=== PATIENT | male | born 1960 | race Caucasian/White ===

== ENCOUNTER 2019-09-19 09:10 | Inpatient (IN) ==
--- NOTE | 2019-08-13 16:19 | PAT Medication Instructions ---
Medication Instructions Date of Service August 13, 2019 Home Medications allopurinol 100 mg tablet 100 mg PO QAM aspirin 81 mg tablet,delayed release 81 mg PO QAM cholecalciferol (vitamin D3) 1,000 unit chewable tablet 1,000 units PO WK doxazosin 4 mg tablet 4 mg PO QAM fenofibrate nanocrystallized 145 mg tablet 145 mg PO QPM ferrous fumarate 325 mg (106 mg iron) tablet 325 mg PO QAM gabapentin 300 mg capsule 300 mg PO QPM rosuvastatin 20 mg tablet 20 mg PO QPM ascorbic acid (vitamin C) 500 mg tablet 500 mg PO WK ergocalciferol (vitamin D2) 400 unit tablet 400 units PO QAM hydroxychloroquine 200 mg tablet 200 mg PO QAM lisinopril 20 mg tablet 20 mg PO QAM omega-3 fatty acids 1,000 mg capsule 1,000 mg PO BID pantoprazole 40 mg tablet,delayed release 40 mg PO QAM sertraline 50 mg tablet 100 mg PO QAM metformin 500 mg PO QAM rivaroxaban [Xarelto] 20 mg PO QAM ASK your prescriber and surgeon rivaroxaban [Xarelto] 20 mg PO QAM aspirin 81 mg tablet,delayed release 81 mg PO QAM hydroxychloroquine 200 mg tablet 200 mg PO QAM STOP taking 2 weeks before surgery (or as soon as possible if surgery is within 2 weeks) omega-3 fatty acids 1,000 mg capsule 1,000 mg PO BID STOP taking 48 hours before surgery fenofibrate nanocrystallized 145 mg tablet 145 mg PO QPM DO NOT take the morning of surgery cholecalciferol (vitamin D3) 1,000 unit chewable tablet 1,000 units PO WK ferrous fumarate 325 mg (106 mg iron) tablet 325 mg PO QAM ascorbic acid (vitamin C) 500 mg tablet 500 mg PO WK ergocalciferol (vitamin D2) 400 unit tablet 400 units PO QAM lisinopril 20 mg tablet 20 mg PO QAM metformin 500 mg PO QAM Take morning of surgery With a small sip of water, OTHERWISE NOTHING TO EAT OR DRINK AFTER MIDNIGHT: allopurinol 100 mg tablet 100 mg PO QAM doxazosin 4 mg tablet 4 mg PO QAM pantoprazole 40 mg tablet,delayed release 40 mg PO QAM sertraline 50 mg tablet 100 mg PO QAM Take evening before surgery gabapentin 300 mg capsule 300 mg PO QPM rosuvastatin 20 mg tablet 20 mg PO QPM Other Notes If you have any questions please call us at [phone] or [phone] or [phone] or [phone]
--- NOTE | 2019-08-16 09:22 | Anesthesiology Consultation ---
Date of Service August 16, 2019 Assessment & Plan (1) Encounter for pre-operative examination: - Awaiting most recent PCP office visit note (Dr. Hernandez). - Elevated creatinine: Known hx CKD but elevated from baseline on 07/2019 labs at 1.96, PCP d/c Metformin 08/12/19, changed antiglycemic medications and is monitoring kidney function-- rechecked level at PAT visit 08/16/18 stable/mildly improved with creatinine at 1.92/GFR 36. Will recheck BMP AM DOS. - Check BSG AM DOS Chart Review Chart Review: Patient seen in Pre Admission Testing Teaching & Discussion Pre-Anesthesia Teaching/Discussion Notes: Instructed NPO after midnight before surgery,except medications with 15 cc of water. Medication instructions provided according to the [facility] guidelines. History Surgery Operation Date: 09/19/19 07:30 Proposed Procedures p Navigational Bronchoscopy with Marking of Right Lower Lobe with Indocyanine Green Dye, - Eliot Santos MD, FACS s Right Robotic Video Assisted Thoracoscopy with Right Lower Wedge Resection - Eliot Santos MD, FACS Height/Weight Height: 5 ft 8 in Weight: 107.4 kg Allergies Allergy/AdvReac Type Severity Reaction Status Date / Time No Known Allergies Allergy Verified 08/13/19 15:28 Medications Home Medications Medication Instructions Recorded Confirmed Last Taken allopurinol 100 mg tablet 100 mg PO QAM 07/25/19 08/13/19 Unknown aspirin 81 mg tablet,delayed 81 mg PO QAM 07/25/19 08/13/19 Unknown release cholecalciferol (vitamin D3) 1,000 1,000 units PO WK 07/25/19 08/13/19 Unknown unit chewable tablet doxazosin 4 mg tablet 4 mg PO QAM 07/25/19 08/13/19 Unknown fenofibrate nanocrystallized 145 145 mg PO QPM 07/25/19 08/13/19 Unknown mg tablet ferrous fumarate 325 mg (106 mg 325 mg PO QAM 07/25/19 08/13/19 Unknown iron) tablet gabapentin 300 mg capsule 300 mg PO QPM 07/25/19 08/13/19 Unknown rosuvastatin 20 mg tablet 20 mg PO QPM 07/25/19 08/13/19 Unknown ascorbic acid (vitamin C) 500 mg 500 mg PO WK 07/26/19 08/13/19 Unknown tablet ergocalciferol (vitamin D2) 400 400 units PO QAM 07/26/19 08/13/19 Unknown unit tablet hydroxychloroquine 200 mg tablet 200 mg PO QAM 07/26/19 08/13/19 Unknown lisinopril 20 mg tablet 20 mg PO QAM 07/26/19 08/13/19 Unknown omega-3 fatty acids 1,000 mg 1,000 mg PO BID 07/26/19 08/13/19 Unknown capsule pantoprazole 40 mg tablet,delayed 40 mg PO QAM 07/26/19 08/13/19 Unknown release sertraline 50 mg tablet 100 mg PO QAM tab 07/26/19 08/13/19 Unknown linagliptin [Tradjenta] 5 mg PO DAILY 08/16/19 08/16/19 Unknown Past Medical History Medical History Arthritis unsure what type/"hand related"- on hydroxychloroquine Carcinoid tumor of lung CKD (chronic kidney disease) CKD but elevated from baseline on 07/2019 labs at 1.96, PCP d/c Metformin 08/12/19 and monitoring-- rechecked level at PAT visit 08/16/18 stable/mildly improved at 1.92 Depression Diabetes mellitus, type 2 NIDDM GERD (gastroesophageal reflux disease) controlled Gout Hearing deficit Hx of deep venous thrombosis RLE (2016)- previously on Xarelto (since discontinued) Hx of myocardial infarction 1993- medically managed Hyperlipidemia Hypertension Obesity Sleep apnea CPAP Stroke CVA (1997); "mini-stroke" ?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, difficulty with ambulation (uses walker) Exercise / Class Metabolic Activity III < 4 Walking/Shop/Light housework (uses walker PRN) Past Family History Family History Sister Hypertension Brother Hypertension Diabetes Mother Heart disease Cancer Father Heart disease Stroke Past Surgical History Surgical History History of lung biopsy Hx of colonoscopy Past Anesthesia History No Hx of Anesthesia Complications and No Family Hx of Anesthesia Complications History of PONV No Hx of PONV and No Hx of Motion Sickness Social History Smoking Status: Former smoker Smoking cigarettes per day: Quit 1997 Do You Dip or Chew Tobacco: No Hx Alcohol Use: No Hx Substance Use: No Review of Systems Reflux controlled. Patient denies chest pain, shortness of breath, cough, wheezing, palpitations. Physical Exam Vital Signs VITALS BP 155/82 P 54 TEMP 97.7 SP02 93%RA RESP 18 PHYSICAL Full neck and c-spine range of motion. Full TMJ range of motion. TMD 3.5 finger breaths Mallampati Score 3 Dentition: edentulous Lungs: diminished breath sounds throughout Cardiac: regular rate and rhythm, distant heart sounds Spine: normal Carotid arteries: negative bruit Extremities: no edema Testing Laboratory Results 08/16/19 09:47 Hemoglobin A1c 5.2 % (4.5-5.6) 08/16/19 09:47 Blood Type A Positive 08/16/19 09:47 Antibody Screen NEGATIVE 08/16/19 09:47 08/10/19 WBC 4.2 H/H 12.1/37.0 PLATELETS 157 HGBA1C 5.4% Electrocardiogram Date: 08/16/19 SB with first degree AVB at 51bpm. Otherwise "normal" ECG. Chest X-Ray Date: 07/04/19 post-procedural changes s/p right lung biopsy. No evidence of pneumothorax. Cardiomediastinal silhouette is borderline enlarged. B/L low lung volumes. No evidence of pleural effusions.
[2019-08-16 11:02] LABS: Estimated Average Glucose 103 mg/dl; Hemoglobin A1C 5.2 % (4.5-5.6)
[2019-08-16 11:04] LABS: BUN Creatinine Ratio 15.9 (10-20); Calcium 9.9 mg/dl (8.5-10.1); Est GFR (African American) 42.6; Est GFR (Non-African American) 36.8; Potassium 4.8 mmol/L (3.5-5.1)
--- NOTE | 2019-08-17 08:15 | Electrocardiogram Report ---
Test Reason : Blood Pressure : / mmHG Vent. Rate : 051 BPM Atrial Rate : 051 BPM P-R Int : 242 ms QRS Dur : 116 ms QT Int : 468 ms P-R-T Axes : 054 -14 055 degrees QTc Int : 431 ms Sinus bradycardia with 1st degree A-V block Otherwise normal ECG No previous ECGs available Confirmed by Martin Landa ([id number]) on 08/16/2019 5:43:40 PM Referred By: Eliot Santos Confirmed By:Alvin Landa
[2019-09-19 10:05] LABS: BUN Creatinine Ratio 18.1 (10-20); Calcium 10.2 mg/dl (8.5-10.1); Creatinine Clr Calc Pharmacy 46.7 ml/min; Est GFR (Non-African American) 37.9; Potassium 4.7 mmol/L (3.5-5.1)
[2019-09-19] MEDS ORDERED: LIDOCAINE HCL 2% 2 ML VIAL/AMP(20MG/ML) INFIL ONE (10:47)
[2019-09-19] MEDS ORDERED: ONDANSETRON INJ 2 MG/ML 2 ML VIAL ONE (10:47)
[2019-09-19] MEDS ORDERED: NEOSTIGMINE METHYLSULFATE 5 MG/5 ML SYR ONE (10:47)
[2019-09-19] MEDS ORDERED: ROCURONIUM BROMIDE 10 MG/ML 5 ML VIAL ONE ×2 (10:47→13:28)
[2019-09-19] MEDS ORDERED: PROPOFOL IV EMULSION 10 MG/ML 20 ML VIAL IV ONE (10:47)
[2019-09-19] MEDS ORDERED: DEXAMETHASONE SOD INJ 4 MG/ML VIAL ONE (10:47)
[2019-09-19] MEDS ORDERED: GLYCOPYRROLATE 0.2 MG/ML VIAL ONE (10:47)
[2019-09-19] MEDS ORDERED: fentaNYL citrate 100 MCG/2 ML VIAL ONE ×2 (10:48→14:19)
[2019-09-19] MEDS ORDERED: MIDAZOLAM HCL 1 MG/ML 2ML VIAL ONE (10:48)
[2019-09-19] MEDS ORDERED: LACTATED RINGER'S 1,000 ML IV SCH (11:00)
[2019-09-19] MEDS ORDERED: BUPIVACAINE 0.5 % 5 MG/1 ML MPF 30ML VIAL ONE (11:38)
[2019-09-19] MEDS ORDERED: BUPIVACAINE LIPOSOME 1.3% 266 MG/20 ML VIAL ONE (11:39)
[2019-09-19] MEDS ORDERED: SODIUM CHLORIDE 0.9% PF 50 ML VIAL ONE (11:39)
--- NOTE | 2019-09-19 11:56 | History & Physical Report ---
Date of Service September 19, 2019 Assessment & Plan (1) Nodule of right lung: Very long talk with the patient and his sister. I also discussed this case with Dr. Philip Grewal. We are going to proceed with a navigational bronchoscopy with ICG marking and then turned the patient into a robot-assisted thoracoscopic wedge resection with frozen section and possible lobectomy. Present on Admission?: Yes (2) Carcinoid tumor of lung: Present on Admission?: Yes History of Present Illness Primary Care Provider: Rowan Morse MD This is a 59-year-old male with a history of cigarette smoking but quit many years ago who was referred to me by Dr. Philip Grewal from [place] [facility] specialist. Patient has multiple issues and is managed by home care nurses and caseworkers at home. He has a right lower lobe mass and appears to be a carcinoid. Despite his young age the patient is obese suffers from GERD, non -insulin-dependent diabetes mellitus, hyperlipidemia, and gout. Had a long talk to the patient his sister. We are going to proceed with a electromagnetic navigational bronchoscopy with ICG marking and a wedge resection with a robotic thoracoscopic approach. Should frozen section show a non-small cell we will proceed with a right lower lobectomy, lung function show she would easily tolerate this. Allergies Allergy/AdvReac Type Severity Reaction Status Date / Time No Known Allergies Allergy Verified 09/19/19 09:36 Home Medications Home Medications Medication Instructions Recorded Confirmed Type allopurinol 100 mg tablet 100 mg PO QAM 07/25/19 09/19/19 History aspirin 81 mg tablet,delayed 81 mg PO QAM 07/25/19 09/19/19 History release cholecalciferol (vitamin D3) 25 1,000 units PO WK 07/25/19 09/19/19 History mcg (1,000 unit) chewable tablet doxazosin 4 mg tablet 4 mg PO QAM 07/25/19 09/19/19 History fenofibrate nanocrystallized 145 145 mg PO QPM 07/25/19 09/19/19 History mg tablet ferrous fumarate 325 mg (106 mg 325 mg PO QAM 07/25/19 09/19/19 History iron) tablet gabapentin 300 mg capsule 300 mg PO QPM 07/25/19 09/19/19 History ascorbic acid (vitamin C) 500 mg 500 mg PO WK 07/26/19 09/19/19 History tablet ergocalciferol (vitamin D2) 400 400 units PO QAM 07/26/19 09/19/19 History unit tablet hydroxychloroquine 200 mg tablet 200 mg PO QAM 07/26/19 09/19/19 History lisinopril 20 mg tablet 20 mg PO QAM 07/26/19 09/19/19 History omega-3 fatty acids 1,000 mg 1,000 mg PO BID 07/26/19 09/19/19 History capsule pantoprazole 40 mg tablet,delayed 40 mg PO QAM 07/26/19 09/19/19 History release sertraline 50 mg tablet 100 mg PO QAM tab 07/26/19 09/19/19 History linagliptin [Tradjenta] 5 mg PO DAILY 08/16/19 09/19/19 History Past Med/Surg History Medical History Arthritis unsure what type/"hand related"- on hydroxychloroquine Carcinoid tumor of lung CKD (chronic kidney disease) CKD but elevated from baseline on 07/2019 labs at 1.96, PCP d/c Metformin 08/12/19 and monitoring-- rechecked level at PAT visit 08/16/18 stable/mildly improved at 1.92 Depression Diabetes mellitus, type 2 NIDDM GERD (gastroesophageal reflux disease) controlled Gout Hearing deficit Hx of deep venous thrombosis RLE (2016)- previously on Xarelto (since discontinued) Hx of myocardial infarction 1993- medically managed Hyperlipidemia Hypertension Obesity Sleep apnea CPAP Stroke CVA (1997); "mini-stroke" ?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, difficulty with ambulation (uses walker) Surgical History History of lung biopsy Hx of colonoscopy Family History Sister Hypertension Brother Hypertension Diabetes Mother Heart disease Cancer Father Heart disease Stroke Social History (Updated 07/26/19 @ 11:51 by Sushma Eduardo RN) Preferred Language: [place]amb[place] Communication Ability: Effective Beliefs That Will Affect Care: None marital status: Single Current Living Situation: Alone Feels Safe at Home: Yes Smoking Status: Former smoker packs per day: 2.5 ; Cigarettes Per Day: Quit 1997 ; Do You Dip or Chew Tobacco: No ; Second Hand Exposure: No ; Hx Alcohol Use: No Hx Substance Use: No Review of Systems Review of Systems: The patient does not walk much. Gets around in a wheelchair. He quit smoking years ago denies shortness of breath hemoptysis or productive cough. He has diffuse arthritis. He is obese. He is been eating well. Is had no GI or complaints. The rest of his review of systems is unremarkable. Physical Exam Physical Exam: This is an obese male who appears her stated age of 59. He is awake alert and oriented. His extraocular's are intact. Sclera anicteric. He is edentulous. He has a thick neck. He actually is moving air fairly well wi thout wheezing or rhonchi. He is regulated with his heart distant heart sounds. His abdomen is quite obese. He has trace edema of his lower extremities no joint effusions. He has good peripheral pulses. Neurologically is completely intact. Results & Data Vital Signs (Past 12 Hours) Vital Signs Temp Pulse Resp BP Pulse Ox 09/19/19 09:43 36.3 C L 68 20 145/81 H 95 PG Care Time/CCT Total # of Minutes Spent Total Time Spent with Patient: Total time spent is greater than 50% in coordination of care (as documented) at patient's floor/unit and/or counseling patient: Coding Level of Care Code None Diagnoses Nodule of right lung R91.1 Carcinoid tumor of lung D3A.090
[2019-09-19] MEDS ORDERED: OCTREOTIDE ACETATE 100 MCG in SYRINGE 9 ML IV ONE (12:00)
--- NOTE | 2019-09-19 13:07 | Fluoroscopy Report ---
FL chest 1V frontal CLINICAL HISTORY: NAVIGATIONAL BRONCH IN OR COMPARISON STUDY: Chest CT 08/16/2019. FLUOROSCOPY TIME: 21 seconds.. FINDINGS: A single fluoroscopic spot image of the right lower chest demonstrate a bronchoscope with n eedle biopsy of the right lower lobe nodule. IMPRESSION: Fluoroscopy provided for right lower lobe bronchoscopy. ACT 112: Negative or not required by law. Electronically signed by: Rod Garcia M.D. 09/19/2019 1:06 PM
[2019-09-19] MEDS ORDERED: HYDROmorphone INJ 2 MG/ML SYR/VIAL IV PRN (13:28)
[2019-09-19] MEDS ORDERED: ONDANSETRON INJ 2 MG/ML 2 ML VIAL IV PRN ×2 (13:28→15:57)
[2019-09-19] MEDS ORDERED: ATROPINE SULFATE 0.1 MG/ML 10ML SYR IV PRN (13:28)
[2019-09-19] MEDS ORDERED: fentaNYL citrate 100 MCG/2 ML VIAL IV PRN (13:28)
[2019-09-19] MEDS ORDERED: PROMETHAZINE HCL 6.25 MG in SODIUM CHLORIDE 0.9% 50 ML IV PRN (13:28)
[2019-09-19] MEDS ORDERED: ePHEDrine sulfate 50 MG/ML AMP IV PRN (13:28)
[2019-09-19] MEDS ORDERED: SURGICEL ABSORB HEMOSTAT 2IN X 14IN TOP ONE (13:47)
[2019-09-19] MEDS ORDERED: INDOCYANINE GREEN 25 MG/10 ML INJ ONE (13:47)
[2019-09-19] MEDS ORDERED: CEFAZOLIN 3000MG 72.5 ML IV ONE (14:30)
[2019-09-19] MEDS ORDERED: METOCLOPRAMIDE HCL INJ 5 MG/ML 2 ML VIAL IV ONE (14:45)
--- NOTE | 2019-09-19 15:12 | XRay Report ---
XR chest 1V portable HISTORY: 59 years-old Male right lung resection status post pulmonary resection COMPARISON: Chest CT 08/16/2019 TECHNIQUE: Portable AP view of the chest FINDINGS: Azygos lobe and fissure. Cardiomegaly. Subacute emphysema of the lower lateral right chest wall. Righ t-sided chest tube distal tip terminates adjacent to the medial right lung apex. Tiny right apical pn eumothorax is present with a few millimeters of pleural separation. Mild right lung base atelectasis. Calcific plaque of the thoracic aortic arch. Degenerative changes of the shoulders and spine. IMPRESSION: 1. Right-sided chest tube distal tip terminates adjacent to the medial right lung apex. 2. Tiny right apical pneumothorax. ACT 112: Negative or not required by law. The above report was generated using voice recognition software. It may contain grammatical, syntax o r spelling errors. Electronically signed by: Lele Canela M.D. 09/19/2019 3:11 PM
--- NOTE | 2019-09-19 15:12 | Anesthesiology Progress Note ---
Date of Service September 19, 2019 Anesthesia Post Procedure Vital Signs Vital Signs: Temp Pulse Pulse Resp BP Pulse Ox 09/19/19 14:44 36.4 C L 68 16 110/64 99 09/19/19 09:43 36.3 C L 68 20 145/81 H 95 Transfer of Care Handoff Completed per policy Notes Mental Status: alert / awake / arousable Patient Amnestic to Procedure: Yes Nausea / Vomiting: adequately controlled Pain: adequately controlled Airway Patency, RR, SpO2: stable & adequate BP & HR: stable & adequate Hydration State: stable & adequate Anesthetic Complications: no major complications apparent
--- NOTE | 2019-09-19 15:18 | Operative Report ---
DATE OF OPERATION: 09/19/2019 PREOPERATIVE DIAGNOSIS: Nodular densities, right lower lobe. POSTOPERATIVE DIAGNOSIS: Probable carcinoid x2, right lower lobe. PROCEDURES PERFORMED: 1. Electromagnetic navigational bronchoscopy with marking of this area with ICG dye. 2. Robot-assisted thoracoscopic wedge resection with right lower lobe masses and lymph node biopsy. SURGEON: Eliot Santos MD. SWAGE TOOLSETTER: PRESTON Varma (Mr. Alford was present for the entire case and was instrumental at the patient's bedside while I was at the console). ANESTHESIA: General anesthesia, endotracheal intubation. INDICATION FOR PROCEDURE AND FINDINGS: Rasheed Pryor is a 59-year-old male, it was felt that he may well have a carcinoid in his right lower lobe; however, his barrel handler was concerned as he did have a history of cigarette smoking that we get a tissue diagnosis and treat this a bit more aggressively. I met with the patient and his sister in our office and we decided to do so. On 09/19/2019, the patient was brought to the operating room and underwent an uncomplicated navigational bronchoscopy and we were able to iram this area near the mass with ICG dye. We then wedged this out with a thoracoscopy. Frozen sections are consistent with a carcinoid, but we will have to wait until the immunohistochemical stains are back to say for sure. We had clean margins. The patient tolerated it well with negligible blood loss. DESCRIPTION OF PROCEDURE: The patient was brought to the operating room and laid in supine position. General anesthesia was induced. Endotracheal intubation was performed with a single lumen tube. After appropriate timeout had been called and antibiotics given, a flexible bronchoscope was placed through the adapter and the airways were inspected. There were no endobronchial lesions and he had really very little in the way of any mucus and there was no bleeding. I then placed a navigational probe through the working channel and we mapped our airways after registering the airways and went down into the right lower lobe, and we were able to come out very close to this mass. I confirmed this with a radial ultrasound. I then went out with a needle and 1 mL of ICG dye and injected it under fluoroscopic guidance. We then removed the catheter. There was no bleeding and no dye could be seen endobronchially. The patient was then switched over to a double lumen tube and turned onto the left lateral decubitus position, his right chest was prepped and draped in usual sterile fashion. We used 3 separate arms for this. A 5 mm port was placed just about the mid axillary line and we were about 2 cm from the scapular tip. Unfortunately, we were below the diaphragm. This appeared to be normal. We then removed this port. I put another 5 mm port next to the scapula posteriorly. Upon insufflating CO2, we could see that the port that we had placed could be used at this point. We then put the port back in. We switched this over to a 12 mm camera port. We then put an 8 mm port anteriorly and had an 8 mm port, which we had placed posteriorly. We then put a 12 mm res habilitation assistant's port anteriorly just above the diaphragm. We then docked the robot. Immediately upon opening the chest, we went posteriorly and we could see this mass. I had to take down the inferior pulmonary ligament. We did this without difficulty and I biopsied a small level 8 and level 9 lymph nodes, which appeared normal. I identified the inferior pulmonary vein. I then did a generous wedge resection to remove this mass, which we could easily see using the Firefly fluorescence. We wedged this out by firing Endo-YFN several times with a small Endobag and when delivering it off the field, I could feel the mass. I went and reviewed the frozen section with Dr. Elliott Sabillon and indeed this is consistent with a neuroendocrine tumor, although we cannot say for sure. There were 2 nodules, which was not surprising. One was only 8 millimeter or so and they were close. Margins were clean. We really got into no bleeding. Of interest is the patient did have an azygos lobe. This is not of clinical significance. We then placed a 24-Kittitian chest tube into the assistance port directed towards the apex. We closed the 12 mm camera port using a 0 Vicryl. A 4-0 Monocryl was used in running subcuticular fashion to approximate the wound edges and heavy silk suture anchored the chest tube to the patient's skin. 0 Vicryl closed the muscle layer of the 12 mm port. A 4-0 Monocryl was used in running subcuticular fashion to approximate the wound edges. The patient tolerated it well with negligible blood loss. At the beginning of the case, we mixed a total of 266 mg of Exparel in 20 mL of solution with 30 mL of 0.5% bupivacaine and 250 mL of normal saline. We then injected each of the 4 port sites and performed an intercostal block from the 2nd to the 12th rib under thoracoscopic guidance. The patient was awakened without difficulty and extubated in the room and transported back to the postanesthesia care unit in stable condition. I attest to the content of the Intraoperative Record and any orders documented therein. Any exception s are noted below.
[2019-09-19] MEDS ORDERED: MoRPHine SULFATE 2 MG/ML CARP IV PRN (15:57)
[2019-09-19] MEDS ORDERED: GLUCAGON FOR INJ 1 MG VIAL IM PRN (16:15)
[2019-09-19] MEDS ORDERED: CARBOHYDRATES FOR HYPOGLYCEMIA PO PRN (16:15)
[2019-09-19] MEDS ORDERED: DEXTROSE 50% 50 ML SYRINGE IV PRN (16:15)
[2019-09-19] MEDS ORDERED: GLUCOSE 10 TABS/TUBE PO PRN (16:15)
[2019-09-19] MEDS ORDERED: GLUCOSE 40% GEL 15 GM TUBE PO PRN (16:15)
[2019-09-19] MEDS: SODIUM CHLORIDE 0.9% 1000ML 1,000 ML IV SCH (16:34)
[2019-09-19] MEDS: ACETAMINOPHEN 1,000 MG/100 ML VIAL IV SCH ×2 (17:32→23:51)
[2019-09-19] MEDS: INSULIN ASPART 100 UNITS/ML 3 ML PEN SC SCH ×2 (18:59→20:49)
[2019-09-19] MEDS: FENOFIBRATE NANOCRYSTALLIZED 145 MG TABLET PO SCH (20:45)
[2019-09-19] MEDS: DOCUSATE SODIUM 100 MG CAP PO SCH (20:46)
[2019-09-19] MEDS: GABAPENTIN 300 MG CAP PO SCH (20:46)
[2019-09-19] MEDS: METOCLOPRAMIDE HCL INJ 5 MG/ML 2 ML VIAL IV SCH (23:26)
[2019-09-20] MEDS: SODIUM CHLORIDE 0.9% 1000ML 1,000 ML IV SCH (05:46)
[2019-09-20] MEDS: METOCLOPRAMIDE HCL INJ 5 MG/ML 2 ML VIAL IV SCH (05:46)
--- NOTE | 2019-09-20 07:46 | XRay Report ---
XR chest 1V portable HISTORY: Postop. right lung wedge COMPARISON: Chest 09/19/2019. FINDINGS: Right-sided chest tube is been repositioned and now resides within the medial aspect of the mid right hemithorax. Tiny right apical pneumothorax is unchanged. There are low lung volumes. The h eart remains mildly enlarged. Incidental note is made of a right azygos lobe. IMPRESSION: Stable tiny right pneumothorax. Right chest tube remains in place. ACT 112: Negative or not required by law. Electronically signed by: Rod Garcia M.D. 09/20/2019 7:44 AM
--- NOTE | 2019-09-20 08:36 | Anesthesiology Progress Note ---
Date of Service September 20, 2019 Anesthesia Post Procedure Vital Signs Vital Signs: Temp Pulse Pulse Resp BP BP Pulse Ox 09/20/19 08:00 36.5 C 56 L 17 123/73 95 09/20/19 04:00 36.4 C L 57 L 18 125/74 96 09/20/19 02:00 36.4 C L 51 L 18 131/73 96 09/20/19 00:02 36.4 C L 54 L 18 123/73 95 09/19/19 22:00 36.6 C 54 L 16 119/64 92 09/19/19 20:00 36.5 C 56 L 16 125/76 96 09/19/19 19:25 36.5 C 60 16 123/73 96 09/19/19 18:00 36.4 C L 59 L 20 138/79 99 09/19/19 17:00 36.5 C 52 L 20 138/79 98 09/19/19 16:37 36.4 C L 58 L 20 135/73 99 09/19/19 16:01 36.4 C L 58 L 20 121/68 99 09/19/19 15:30 36.6 C 55 L 25 H 115/65 97 09/19/19 15:20 36.6 C 62 22 121/75 100 09/19/19 15:10 50 L 26 H 115/63 100 09/19/19 15:00 66 18 115/72 100 09/19/19 14:50 66 18 114/75 100 09/19/19 14:44 36.4 C L 68 16 110/64 99 09/19/19 09:43 36.3 C L 68 20 145/81 H 95 Notes Mental Status: alert / awake / arousable and participated in evaluation Patient Amnestic to Procedure: Yes Nausea / Vomiting: adequately controlled Pain: adequately controlled Airway Patency, RR, SpO2: stable & adequate BP & HR: stable & adequate Hydration State: stable & adequate Anesthetic Complications: no major complications apparent and Pt Satisfied with anesthetic care
--- NOTE | 2019-09-20 09:19 | Progress Note ---
DATE: 09/20/2019 Mr. Pryor was seen today on 09/20/2019. He looks great. He denies pain. He has drained some fluid from his chest tube, but he really looks quite good. BUN and creatinine are up a bit at 34 and 1.7 yesterday. He is making good urine now. He is up and ambulating in the hallway with his walker. He is on room air at 95% saturation. We are going to pull his chest tube out tomorrow and let him go home. It appears from the frozen section. We are probably dealing with a carcinoid, but we will no more and we get our immunohistochemical stains back. He has certainly tolerated this procedure well.
[2019-09-20] MEDS: INSULIN ASPART 100 UNITS/ML 3 ML PEN SC SCH ×4 (09:44→21:53)
[2019-09-20] MEDS: ASPIRIN 81 MG ECTAB PO SCH (09:46)
[2019-09-20] MEDS: DOCUSATE SODIUM 100 MG CAP PO SCH ×2 (09:46→21:06)
[2019-09-20] MEDS: lisinopriL 20 MG TAB PO SCH (09:46)
[2019-09-20] MEDS: PANTOprazole 40 MG TAB PO SCH (09:46)
[2019-09-20] MEDS: DOXAZosin MESYLATE 4 MG TAB PO SCH (09:46)
[2019-09-20] MEDS: SERTRALINE HCL 100 MG TABLET PO SCH (09:46)
[2019-09-20] MEDS: allopurinoL 100 MG TAB PO SCH (09:47)
[2019-09-20] MEDS: ENOXAPARIN INJ 40 MG/0.4 ML SYR SQ SCH (09:47)
[2019-09-20] MEDS: HYDROXYCHLOROQUINE SULFATE 200 MG TAB PO SCH (09:47)
[2019-09-20] MEDS: CHOLECALCIFEROL (VITAMIN D) 400 UNITS TABLET PO SCH (09:48)
[2019-09-20] MEDS: ACETAMINOPHEN 1,000 MG/100 ML VIAL IV SCH (09:50)
[2019-09-20] MEDS: ACETAMINOPHEN 325 MG TAB PO SCH ×3 (09:52→21:06)
--- NOTE | 2019-09-20 12:47 | Pulmonary Function Test ---
Spirometry was performed with static and dynamic pulmonary function with adequate quality. There is no evidence of obstructive lung dysfunction. No bronchodilator test done. Flow volume loop cannot comment on as I am not able to see a clear picture on the scanned document. Suggest clinical correlation.
[2019-09-20] MEDS: FENOFIBRATE NANOCRYSTALLIZED 145 MG TABLET PO SCH (21:06)
[2019-09-20] MEDS: GABAPENTIN 300 MG CAP PO SCH (21:06)
[2019-09-21] MEDS: OXYCODONE HCL IR 5 MG TAB (IMMEDIATE RELEASE) PO PRN (01:41)
[2019-09-21] MEDS ORDERED: TAMSULOSIN HCL 0.4 MG CAP PO ONE (03:39)
[2019-09-21] MEDS: ACETAMINOPHEN 325 MG TAB PO SCH ×4 (03:43→21:18)
--- NOTE | 2019-09-21 07:29 | XRay Report ---
XR chest 1V portable HISTORY: Postop. right lung resection COMPARISON: Chest 09/20/2019. FINDINGS: The right-sided chest tube terminates in the right lung apex. A tiny right apical pneumotho rax is also stable. The left lung is clear. There is mild central pulmonary vascular congestion witho ut overt edema. The heart remains mildly enlarged. Incidental note is made of a right azygos lobe. Ri ght chest wall subcutaneous emphysema has slightly progressed. IMPRESSION: 1. No change in the tiny right apical pneumothorax and right-sided chest tube. 2. Right chest wall subcutaneous emphysema has slightly progressed. ACT 112: Negative or not required by law. Electronically signed by: Rod Garcia M.D. 09/21/2019 7:27 AM
[2019-09-21] MEDS: INSULIN ASPART 100 UNITS/ML 3 ML PEN SC SCH ×4 (09:21→21:25)
[2019-09-21] MEDS: DOCUSATE SODIUM 100 MG CAP PO SCH ×2 (09:23→21:18)
[2019-09-21] MEDS: lisinopriL 20 MG TAB PO SCH (09:23)
[2019-09-21] MEDS: SERTRALINE HCL 100 MG TABLET PO SCH (09:23)
[2019-09-21] MEDS: CHOLECALCIFEROL (VITAMIN D) 400 UNITS TABLET PO SCH (09:24)
[2019-09-21] MEDS: HYDROXYCHLOROQUINE SULFATE 200 MG TAB PO SCH (09:24)
[2019-09-21] MEDS: ASPIRIN 81 MG ECTAB PO SCH (09:24)
[2019-09-21] MEDS: DOXAZosin MESYLATE 4 MG TAB PO SCH (09:24)
[2019-09-21] MEDS: allopurinoL 100 MG TAB PO SCH (09:24)
[2019-09-21] MEDS: ENOXAPARIN INJ 40 MG/0.4 ML SYR SQ SCH (09:25)
[2019-09-21] MEDS: PANTOprazole 40 MG TAB PO SCH (09:27)
--- NOTE | 2019-09-21 09:48 | XRay Report ---
XR chest 1V portable CLINICAL HISTORY: pneumothorax COMPARISON STUDY: Chest radiograph September 21, 2019 at 7:05 AM. FINDINGS: Right apical chest tube is in place. No pneumothorax is identified. Azygos fissure is noted . No evidence for pulmonary edema. There are mild bibasilar opacities. Subcutaneous gas within the ri ght chest wall and neck is noted. IMPRESSION: 1. Right chest tube in place. No pneumothorax identified. 2. Mild bibasilar opacities. ACT 112: Negative or not required by law. Electronically signed by: Dean Soliz M.D. 09/21/2019 9:46 AM
--- NOTE | 2019-09-21 10:26 | Surgery Progress Note ---
Date of Service September 21, 2019 Assessment & Plan (1) Carcinoid tumor of lung: -carcinoid was identified by CT guided biopsy -pt. underwent RVATS with Wedge resection on 09/19/19: -pathology pending due to urinary retention will place on scheduled flomax and ask urology to see: -PVR this am by bladder scan was noted to be 450 cc -chest tube to remain in place today: -it became disconnected from Pleur-evac resulting in air leak -when placed back to suction CXR showed no pneumothorax -continue ambulation -continue pain control measures -lovenox in place for DVT prevention Subjective Pt. notes his breathing is comfortable. He is ambulating with walker. He is tolerating diet. Discussed with RN--pt. having difficulty voiding. He was shad straight cath performed for 850 cc. He did receive flomax. Physical Exam Constitutional: well developed and well nourished; no acute distress Respiratory: normal respiratory effort; no respiratory distress and no labored breathing BS are decreased at bases Cardiovascular: Rate/Rhythm: regular rate and regular rhythm Neurologic: moves all extremities Results & Data Vital Signs (Past 12 Hours) Vital Signs Temp Pulse Pulse Resp BP BP Pulse Ox 09/21/19 07:32 36.9 C 74 14 140/70 95 09/21/19 05:44 87 95 09/20/19 23:01 37.1 C 67 16 117/65 93 PG Care Time/CCT Total # of Minutes Spent Total Time Spent with Patient: Total time spent is greater than 50% in coordination of care (as documented) at patient's floor/unit and/or counseling patient: Coding Level of Care Code None Diagnoses Carcinoid tumor of lung D3A.090
[2019-09-21] MEDS ORDERED: TAMSULOSIN HCL 0.4 MG CAP PO SCH (21:00)
[2019-09-21] MEDS: GABAPENTIN 300 MG CAP PO SCH (21:19)
[2019-09-21] MEDS: FENOFIBRATE NANOCRYSTALLIZED 145 MG TABLET PO SCH (21:20)
[2019-09-22] MEDS: ACETAMINOPHEN 325 MG TAB PO SCH ×4 (03:08→21:19)
[2019-09-22] MEDS: OXYCODONE HCL IR 5 MG TAB (IMMEDIATE RELEASE) PO PRN (06:11)
[2019-09-22 06:46] LABS: Creatinine Clr Calc Pharmacy 52.6 ml/min; Est GFR (African American) 50.8; Est GFR (Non-African American) 43.8
--- NOTE | 2019-09-22 07:31 | XRay Report ---
XR chest 1V portable CLINICAL HISTORY: 59 years-old Male presenting with pneumothorax. TECHNIQUE: Portable upright AP view of the chest was obtained. COMPARISON: 10/01/2019. FINDINGS: Large bore right pleural drain position at the right apex unchanged from prior. Associated extensive soft tissue emphysema along the right lateral chest wall. Atherosclerosis of the aortic arch. Cardiac silhouette borderline enlarged. Mild pulmonary vascular prominence likely relates to mildly low lung volumes. Minimal right basilar opacity, stable to slightly increased from prior. Trace right pleural effusion may be present. Allowing for image quality, no pneumothorax is identified. Incidental note made of an azygos lobe fissure. Osseous structures normal. Upper abdomen normal. IMPRESSION: 1. No pneumothorax identified. 2. Right pleural drain in place. 3. Mildly low lung volumes with hypoventilatory changes and minimal right basilar atelectasis and/or effusion. ACT 112: Negative or not required by law. Electronically signed by: Elliott Hamm M.D. 09/22/2019 7:29 AM
[2019-09-22] MEDS ORDERED: TAMSULOSIN HCL 0.4 MG CAP PO ONE (09:20)
[2019-09-22] MEDS: DOXAZosin MESYLATE 4 MG TAB PO SCH (09:41)
[2019-09-22] MEDS: allopurinoL 100 MG TAB PO SCH (09:41)
[2019-09-22] MEDS: CHOLECALCIFEROL (VITAMIN D) 400 UNITS TABLET PO SCH (09:41)
[2019-09-22] MEDS: SERTRALINE HCL 100 MG TABLET PO SCH (09:41)
[2019-09-22] MEDS: ASPIRIN 81 MG ECTAB PO SCH (09:41)
[2019-09-22] MEDS: DOCUSATE SODIUM 100 MG CAP PO SCH ×2 (09:41→21:19)
[2019-09-22] MEDS: PANTOprazole 40 MG TAB PO SCH (09:42)
[2019-09-22] MEDS: HYDROXYCHLOROQUINE SULFATE 200 MG TAB PO SCH (09:42)
[2019-09-22] MEDS: ENOXAPARIN INJ 40 MG/0.4 ML SYR SQ SCH (09:42)
[2019-09-22] MEDS: lisinopriL 20 MG TAB PO SCH (09:42)
[2019-09-22] MEDS: INSULIN ASPART 100 UNITS/ML 3 ML PEN SC SCH ×4 (09:44→21:20)
--- NOTE | 2019-09-22 10:16 | Progress Note ---
DATE: 09/22/2019 Mr. Pryor was seen today on 09/22/2019. He looks great. There are couple of issues. One is his chest tube. He has not drained very much, only 90 mL over the last 24 hours; however, this appears to be chylous fluid. I am going to send off for sample for triglycerides to the lab and keep this tube in. He has no air leak. His x-ray looks quite good. He does have some subcutaneous emphysema on the right but has not really changed since surgery. I reviewed his pathology with Dr. Elliott Sabillon and this indeed is a carcinoid. There were 2 carcinoids nodules; however, there was also some very small carcinoid nodules at 2 mm and 3 mm. This may well be tumorlets. The lymph nodes were negative for metastatic carcinoid. The 2 larger nodules measured 1.5 cm or so. The other problem with Mr. Pryor is the fact that he is in urinary retention. The patient has a history of urinary retention in the past. At any rate, we are going to try and get his Meier out. Continue him on the Flomax and have Urology see him. We will hopefully get everything out of him tomorrow.
[2019-09-22] MEDS: GABAPENTIN 300 MG CAP PO SCH (21:19)
[2019-09-22] MEDS: TAMSULOSIN HCL 0.4 MG CAP PO SCH (21:19)
[2019-09-22] MEDS: FENOFIBRATE NANOCRYSTALLIZED 145 MG TABLET PO SCH (21:19)
[2019-09-23] MEDS: OXYCODONE HCL IR 5 MG TAB (IMMEDIATE RELEASE) PO PRN ×2 (02:39→22:11)
[2019-09-23] MEDS: ACETAMINOPHEN 325 MG TAB PO SCH ×4 (04:02→21:20)
[2019-09-23] MEDS: HYDROXYCHLOROQUINE SULFATE 200 MG TAB PO SCH (08:40)
[2019-09-23] MEDS: DOXAZosin MESYLATE 4 MG TAB PO SCH (08:40)
[2019-09-23] MEDS: ASPIRIN 81 MG ECTAB PO SCH (08:41)
[2019-09-23] MEDS: SERTRALINE HCL 100 MG TABLET PO SCH (08:41)
[2019-09-23] MEDS: lisinopriL 20 MG TAB PO SCH (08:41)
[2019-09-23] MEDS: ENOXAPARIN INJ 40 MG/0.4 ML SYR SQ SCH (08:41)
[2019-09-23] MEDS: allopurinoL 100 MG TAB PO SCH (08:41)
[2019-09-23] MEDS: CHOLECALCIFEROL (VITAMIN D) 400 UNITS TABLET PO SCH (08:41)
[2019-09-23] MEDS: DOCUSATE SODIUM 100 MG CAP PO SCH ×2 (08:41→20:19)
[2019-09-23] MEDS: PANTOprazole 40 MG TAB PO SCH (08:41)
[2019-09-23] MEDS: INSULIN ASPART 100 UNITS/ML 3 ML PEN SC SCH ×4 (08:43→21:22)
--- NOTE | 2019-09-23 10:52 | Progress Note ---
DATE: 09/23/2019 Mr. Pryor was seen today. He is voiding well. He has no push residuals. He is walking in the hallway. Unfortunately, he continues to drain from his chest tube. He drained about 300 mL of a milky fluid. The triglycerides on this fluid was assessed yesterday. Indeed, the triglycerides are 799, which indicates chylothorax. The patient has been eating well. There have been no issues with any GI complaints. He sounds good. ASSESSMENT AND PLAN: 1. Postoperative day #4 status post resection of carcinoid with lymph node dissection. 2. Chylothorax. 300 mL is a bit much. We will have to see what he drains over the next few days. I am going to ask dietary to see him about modifying his diet.
[2019-09-23] MEDS: FENOFIBRATE NANOCRYSTALLIZED 145 MG TABLET PO SCH (20:19)
[2019-09-23] MEDS: TAMSULOSIN HCL 0.4 MG CAP PO SCH (20:19)
[2019-09-23] MEDS: GABAPENTIN 300 MG CAP PO SCH (20:19)
[2019-09-24] MEDS: ACETAMINOPHEN 325 MG TAB PO SCH ×2 (03:12→09:01)
--- NOTE | 2019-09-24 07:15 | XRay Report ---
XR chest 1V portable CLINICAL HISTORY: 59 years-old Male presenting with chylothorax. TECHNIQUE: Portable upright AP view of the chest was obtained. COMPARISON: 09/22/2019. FINDINGS: Large bore right pleural drain position at the right apex as on prior exam. Associated soft tissue em physema along the right lateral chest wall. Atherosclerosis of the aortic arch. Cardiac silhouette mi ldly enlarged. Mild pulmonary vascular prominence. Moderate low lung volumes with stable to slightly worsened aeration in comparison to prior. Increased right basilar opacity. No pneumothorax. Trace rig ht effusion not excluded. Osseous structures normal. Upper abdomen normal. IMPRESSION: 1. Increased right basilar opacity could suggest a developing infiltrate/pneumonia, fluid in the min or, or atelectasis. 2. Right pleural drain. No pneumothorax. 3. Mild cardiomegaly and mild volume overload. 4. Hypoventilatory changes. ACT 112: Negative or not required by law. Electronically signed by: Elliott Hamm M.D. 09/24/2019 7:13 AM
[2019-09-24] MEDS: HYDROXYCHLOROQUINE SULFATE 200 MG TAB PO SCH (08:58)
[2019-09-24] MEDS: PANTOprazole 40 MG TAB PO SCH (08:58)
[2019-09-24] MEDS: ASPIRIN 81 MG ECTAB PO SCH (08:58)
[2019-09-24] MEDS: CHOLECALCIFEROL (VITAMIN D) 400 UNITS TABLET PO SCH (08:58)
[2019-09-24] MEDS: lisinopriL 20 MG TAB PO SCH (08:58)
[2019-09-24] MEDS: DOXAZosin MESYLATE 4 MG TAB PO SCH (08:59)
[2019-09-24] MEDS: ENOXAPARIN INJ 40 MG/0.4 ML SYR SQ SCH (08:59)
[2019-09-24] MEDS: DOCUSATE SODIUM 100 MG CAP PO SCH (08:59)
[2019-09-24] MEDS: allopurinoL 100 MG TAB PO SCH (08:59)
[2019-09-24] MEDS: SERTRALINE HCL 100 MG TABLET PO SCH (09:00)
[2019-09-24] MEDS: INSULIN ASPART 100 UNITS/ML 3 ML PEN SC SCH ×2 (09:00→12:39)
--- NOTE | 2019-09-24 09:03 | XRay Report ---
XR chest 1V portable CLINICAL HISTORY: tube removal COMPARISON STUDY: September 24, 2019 FINDINGS: The heart is borderline enlarged. The right-sided chest tube has been removed. There is no significant pneumothorax. There is an azygos fissure. There is persistent right-sided subcutaneous em physema. There is no lobar consolidation. There are improving right basilar airspace opacities. There is no failure. There are no significant pleural effusions.[ IMPRESSION: No evidence of pneumothorax status post right-sided chest tube removal. ACT 112: Negative or not required by law. Electronically signed by: Juan Randall M.D. 09/24/2019 9:02 AM
--- NOTE | 2019-09-24 09:45 | Urology Consultation ---
Date of Consultation September 24, 2019 Assessment & Plan (1) Urinary retention: 59 yo M admitted for admitted for navigational bronchoscopy and robot- assisted thoracoscopic wedge resection with right lower lobe masses and lymph node biopsy with Dr. Santos. Urinary retention: - Meier discontinued on 09/22/19 - patient is voiding spontaneously. Continue to monitor closely. - Recommend bladder scans q shift or prn while inpatient, order placed. - Pt initiated on Flomax while inpatient. Home medications reviewed and patient on Doxazosin prior to admission. If this was strictly for BPH, consider converting to Tamsulosin upon discharge as this will likely be more beneficial for his urination. If taking for blood pressure, recommend he follow-up with PCP regarding both medications. - Will arrange follow-up outpatient with our service in 1-2 months with [facility]. Will request urology and PCP records regarding PSA screening. Thank you for allowing us to participate in the acute care of Mr. Pryor. Please reconsult us with additional questions, concerns or changes in patient status. History of Present Illness Attending Physician: Eliot Santos MD, FACS History of Present Illness 59 yo M with PMHx of hypertension, hyperlipidemia, sleep apnea, and diabetes admitted for navigational bronchoscopy and robot-assisted thoracoscopic wedge resection with right lower lobe masses and lymph node biopsy with Dr. Santos. New consultation for urinary retention. Pt underwent navigational bronchoscopy and thoracoscopic wedge resection with right lower lobe masses and lymph node biopsy with Dr. Santos on 09/19/19. He developed post op urinary retention. Patient reports he had difficulty urinating and bladder scan was elevated, necessitating straight catheterization. Meier catheter placed on 09/21/19, but was discontinued on 09/22/19. Flomax was initiated by primary team. Patient has been voiding spontaneously without difficulty since Meier catheter removal. Bladder scan on 09/23/19 was 105 mL. Lab work and chart reviewed. No UA or UC&S while inpatient. Patient awake and ambulating from his bathroom this AM. No issues over night. Reports voiding spontaneously without difficulty. Denies dysuria, urgency, or hematuria. No abdominal or suprapubic pain. No f/c/n/v. Denies bothersome LUTS at baseline. Reports nocturia x 3. Patient reports following with urology in the past, Dr. Rodgers. Reports one prior episode of urinary retention in ~2016. Reports family history of prostate cancer (brother, age 35 per patient). Denies family history of bladder or kidney cancer. No history of kidney stones. He reports that his PCP performs annual prostate cancer screening. Allergies Allergy/AdvReac Type Severity Reaction Status Date / Time No Known Allergies Allergy Verified 09/19/19 09:36 Home Medications Home Medications Medication Instructions Recorded Confirmed Type allopurinol 100 mg tablet 100 mg PO QAM 07/25/19 09/19/19 History aspirin 81 mg tablet,delayed 81 mg PO QAM 07/25/19 09/19/19 History release cholecalciferol (vitamin D3) 25 1,000 units PO WK 07/25/19 09/19/19 History mcg (1,000 unit) chewable tablet doxazosin 4 mg tablet 4 mg PO QAM 07/25/19 09/19/19 History fenofibrate nanocrystallized 145 145 mg PO QPM 07/25/19 09/19/19 History mg tablet ferrous fumarate 325 mg (106 mg 325 mg PO QAM 07/25/19 09/19/19 History iron) tablet gabapentin 300 mg capsule 300 mg PO QPM 07/25/19 09/19/19 History ascorbic acid (vitamin C) 500 mg 500 mg PO WK 07/26/19 09/19/19 History tablet ergocalciferol (vitamin D2) 400 400 units PO QAM 07/26/19 09/19/19 History unit tablet hydroxychloroquine 200 mg tablet 200 mg PO QAM 07/26/19 09/19/19 History lisinopril 20 mg tablet 20 mg PO QAM 07/26/19 09/19/19 History omega-3 fatty acids 1,000 mg 1,000 mg PO BID 07/26/19 09/19/19 History capsule pantoprazole 40 mg tablet,delayed 40 mg PO QAM 07/26/19 09/19/19 History release sertraline 50 mg tablet 100 mg PO QAM tab 07/26/19 09/19/19 History linagliptin [Tradjenta] 5 mg PO DAILY 08/16/19 09/19/19 History tamsulosin 0.4 mg PO HS #30 cap 09/24/19 Rx Patient History Medical History Arthritis unsure what type/"hand related"- on hydroxychloroquine Carcinoid tumor of lung CKD (chronic kidney disease) CKD but elevated from baseline on 07/2019 labs at 1.96, PCP d/c Metformin 08/12/19 and monitoring-- rechecked level at PAT visit 08/16/18 stable/mildly improved at 1.92 Depression Diabetes mellitus, type 2 NIDDM GERD (gastroesophageal reflux disease) controlled Gout Hearing deficit Hx of deep venous thrombosis RLE (2016)- previously on Xarelto (since discontinued) Hx of myocardial infarction 1993- medically managed Hyperlipidemia Hypertension Obesity Sleep apnea CPAP Stroke CVA (1997); "mini-stroke" ?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 Robot-assisted thoracoscopic wedge resection with right lower lobe masses and lymph node biopsy Dr. Santos 09/19/19 Hx of colonoscopy Family History Sister Hypertension Brother Hypertension Diabetes Mother Heart disease Cancer Father Heart disease Stroke Social History Preferred Language: Greek Communication Ability: Effective Beliefs That Will Affect Care: None marital status: Single Current Living Situation: Alone Feels Safe at Home: Yes Smoking Status: Former smoker packs per day: 2.5 ; Cigarettes Per Day: Quit 1997 ; Do You Dip or Chew Tobacco: No ; Second Hand Exposure: No ; Hx Alcohol Use: No Hx Substance Use: No Review of Systems Constitutional: as per Subjective / HPI Gastrointestinal: as per Subjective / HPI Genitourinary: + as per Subjective / HPI Physical Exam Constitutional: well developed, well nourished and + obese; no acute distress Respiratory: normal respiratory effort and able to speak in complete sentences; no respiratory distress and no labored breathing Cardiovascular: Extremities: no pedal edema Gastrointestinal (Abdomen): Inspection/Auscultation: abdomen normal to inspection; abdomen not distended Percussion/Palpation: abdomen soft; abdomen nontender Neurologic: moves all extremities and awake Psychiatric: A+Ox3, euthymic affect Orientation: cooperative Genitourinary: Voiding spontaneously, urine not visualized during exam SHELLIE: declined today Results & Data Vital Signs (Past 12 Hours) Vital Signs Temp Pulse Pulse Resp BP Pulse Ox Pulse Ox 09/24/19 08:15 93 09/24/19 07:47 36.5 C 66 14 136/88 93 09/23/19 23:15 36.8 C 68 20 110/71 93 PG Care Time/CCT Total # of Minutes Spent Total Time Spent with Patient: Total time spent is greater than 50% in coordination of care (as documented) at patient's floor/unit and/or counseling patient: Coding Level of Care Code 53256 Inpt Consult Level 3 Diagnoses Urinary retention R33.9
--- NOTE | 2019-09-24 09:47 | Discharge Summary ---
DISCHARGE DIAGNOSES: 1. Carcinoid tumors x2, right lower lobe. 2. Status post wedge resection with lymph node dissection. 3. Chylothorax. 4. Urinary retention. HOSPITAL COURSE: Mr. Pryor is a 59-year-old obese male with multiple issues; however, he had a mass growing in his right lower lobe that was felt to be a carcinoid by Dr. Philip Grewal from [facility], asked that a wedge resection be performed. He was concerned about making sure this was not a malignancy and also was concerned about its growth. On 09/19/2019, patient underwent an uncomplicated navigational bronchoscopy with marking of this mass. I then performed a wedge resection. Actually, there were 2 masses and some other smaller tumorlets, but we also did an extensive lymph node dissection and his nodes were all negative for metastatic disease. The patient did well; however, he drained a bit more than I liked. We watched this for a few days. It turns out this fluid became milky. He also developed urinary retention. We put a Meier catheter in for a short period of time and treated him with Flomax and this resolved. He was voiding well by the time he was discharged on postop day #5. Also he had a chylothorax. The triglycerides are 792 and it was milky but not very voluminous. This essentially stopped draining. He put out very little over a 24-hour period and his x-ray looked good. For this reason, I pulled his chest tube and discharged him on postop day #5. We will see him back in the office in 1 week with an x-ray. In the meantime, we will refer him back to Dr. Grewal. [facility]
== END 2019-09-24 13:50 | disposition home or self-care (01) | DRG 168 ==
LOC: ASU 09:10 → 3N 14:28